=== PATIENT | female | born 1980 | race Caucasian/White ===

== ENCOUNTER 2017-08-18 04:21 | Emergency (ER) | payer BC ==
[~2017-08-18] VITALS: Ht 172.7 cm; Wt 149.4 kg
[~2017-08-18 04:21] MED LIST: ADDERALL20 MG PO; LAMICTAL25 MG PO; METFORMIN HCL500 MG; NOHOMEMEDS; SPIRONOLACTONE50 MG; ULTRAM50 MG PO
[2017-08-18 05:22] LABS: EOSINOPHIL (%) 2.6 % (0-5); EOSINOPHIL COUNT 0.2 K/uL (0-0.3); HEMATOCRIT 37.7 % (36.0-46.0); IMMATURE GRANULOCYTE (%) 0.2 % (0.0-0.7); LYMPHOCYTE COUNT 1.6 K/uL (1.0-2.8); MCHC 32.9 G/DL (30.0-36.0); MCV 91.1 FL (83-99); MEAN PLAT.VOLUME 9.6 uM^3 (9.5-12.4); MONOCYTE (%) 4.4 % (3-12); MONOCYTE COUNT 0.4 K/uL (0-0.8); NEUTROPHIL (%) 72.8 % (45-76); PLATELET COUNT 256 K/uL (156-360); RBC DIS.WIDTH-CV 12.3 % (11.8-14.6); RED BLOOD COUNT 4.14 M/uL (3.80-5.20); WHITE BLOOD COUNT 8.2 K/uL (4.1-10.2)
[2017-08-18 05:32] LABS: CHLORIDE 111 mEq/L (99-109); POTASSIUM 4.1 mEq/L (3.7-5.4); SODIUM 139 mEq/L (136-147)
[2017-08-18 05:34] LABS: GLUCOSE 100 mg/dL (70-99)
[2017-08-18 05:35] LABS: ANION GAP 6 MEQ/L (2-14)
[2017-08-18 05:36] LABS: TOTAL BILIRUBIN 0.2 mg/dL (0.0-1.0)
[2017-08-18 05:38] LABS: ALKALINE PHOSPHATASE 36 IU/L (3-129); GFR ESTIMATE (CALCULATED) > 59 mL/min/
[2017-08-18 05:39] LABS: UREA NITROGEN (BUN) 11 mg/dL (9-23)
[2017-08-18 05:41] LABS: LIPASE 26 U/L (1.0-51.0)
[2017-08-18 06:06] LABS: ADD MIUA? YES; BILIRUBIN NEGATIVE; BLOOD NEGATIVE; COLOR STRAW ((YELLOW)); GLUCOSE (STRIP) NEGATIVE; KETONES NEGATIVE; LEUKOCYTES MODERATE; NITRITE NEGATIVE; PROTEIN (STRIP) NEGATIVE; SPECIFIC GRAVITY 1.013 (1.000-1.030); UROBILINOGEN 0.2 MG/DL (0.2-1.0)
[2017-08-18 06:14] LABS: BACTERIA NONE SEEN /HPF; EPITHELIAL CELLS RARE /HPF; MUCUS TRACE /LPF; RED BLOOD CELLS 0-5 /HPF (0-5); UCUL ADDED? YES
[2017-08-18] MEDS ORDERED: LAMICTAL25 MG PO (06:37)
[2017-08-18] MEDS ORDERED: CARAFATE1 GM PO (06:45)
[2017-08-18] MEDS ORDERED: CIPRO500 MG PO (09:25)
[2017-08-18 09:31] VITALS: BP 151/74
== END 2017-08-18 09:38 | disposition home or self-care (01) ==
LOC: EME 04:21
PROVIDERS: Emergency Medicine
DX: N39.0 Urinary tract infection, site not specified (principal); R10.9 Unspecified abdominal pain
CPT/HCPCS: 71020; 76705; 80053; 81003; 83690; 85025; 87086; 99281; 99285